=== PATIENT | female | born 1985 | race Caucasian/White ===

== ENCOUNTER → 2019-05-15 | Outpatient (CLI) | payer OTHER ==
[~2019-05-15] MED LIST: BUSP5TA PO; CELE40TA PO; LISI10TA4 PO; METF500T13 PO
--- NOTE | 2019-05-17 10:02 | REP ---
REASON: Pain and degenerative disc disease. COMPARISON: None. The craniovertebral junction is within normal limits. The signal throughout the imaged spinal cord is within normal limits. The facet joints are well aligned bilaterally. There is a slight cervical kyphotic curve. Vertebral body height is within normal limits throughout. There is disc space narrowing C3-4 through C5-6 inclusive. At the C2-3 level, there is a slight broad-based annular bulge. This causes a mild concave anterior deformity of the ventral subarachnoid space. There is no disc herniation, foraminal narrowing or alexis central canal stenosis. At the C3-4 level, there is a mild to moderate broad-based annular bulge. This causes a mild compression of the ventral subarachnoid space without cord compression, disc extrusion, or foraminal narrowing. At the C4-5 level, there is a moderate broad-based annular bulge, which restricts the ventral subarachnoid space and causes a flattening and straightening of the anterior surface of the spinal cord. There is no disc extrusion or foraminal narrowing. There is mild central canal stenosis. At the C5-6 level, there is a broad-based annular bulge with a central disc extrusion. There is a concave anterior deformity of the spinal cord at this level with obliteration of the ventral subarachnoid space. The extruded disc material migrates inferiorly. There is no foraminal narrowing. At the C6-7 level, there is a broad-based annular bulge seen in conjunction with a central focal subligamentous disc protrusion. The bulging annulus nearly obliterates the ventral subarachnoid space and causes a flattening and straightening of the anterior surface of the spine cord. There is no foraminal narrowing. At the C6-T1 level, there is no abnormality noted. There is no disc herniation, foraminal narrowing or central canal stenosis. IMPRESSION: Discogenic change is seen from C3-4 to C6-7 as described above with a C5-6 disc extrusion and a C6-7 disc protrusion with resultant findings as described above. Electronically Signed by Haris Moreno DO 05/17/2019 03:27 P
--- NOTE | 2019-05-17 10:05 | REP ---
REASON: Back pain. History of degenerative disc disease. COMPARISON: None. Vertebral body height and alignment is within normal limits. There is loss of disc hydrational signal, which is mild and at every level particularly anteriorly. There is no abnormal signal seen in the imaged portion of the spinal cord. The marrow signal is within normal limits. Small Schmorl's nodes are seen at the T10-11 and T11-12 levels. At the T9-10 level, there is a broad-based annular bulge seen in conjunction with a central disc extrusion. The extruded disc material migrates inferiorly and contacts, but does not deform the anterior surface of the spinal cord. The remainder of all imaged thoracic spine levels are without disc extrusion, foraminal narrowing or central canal stenosis. IMPRESSION: T9-10 discogenic change as described above. Electronically Signed by Haris Moreno DO 05/17/2019 03:27 P
--- NOTE | 2019-05-17 10:31 | REP ---
REASON: Back pain. PRIORS: None. There is mild to moderate loss of disc hydrational signal and posterior disc space height at L5-S1. The remainder of the disc spaces are well hydrated and of normal appearing height. The marrow signal is within normal limits throughout. There is no abnormal signal seen in the imaged portion of the spinal cord. From the L1-2 level through the L4-5 level and inclusive, there is no disc herniation, foraminal narrowing or central canal stenosis. No significant degenerative facet joint change is seen at those levels. At the L5-S1 level, there is an asymmetric broad-based annular bulge with a prominent left paracentral component which contacts the left L5 nerve and very closely approximates the left S2 nerve. There is no disc extrusion at this level. The facet joints are within normal limits showing minimal hypertrophic change. IMPRESSION: Discogenic change is seen at L5-S1 as described above. Electronically Signed by Haris Moreno DO 05/17/2019 03:27 P
== END ==
LOC: M RAD 10:28
PROVIDERS: ATTEND Nurse Practitioner Adult Health
DX: M50.122 Cervical disc disorder at C5-C6 level with radiculopathy (principal); M51.34 Other intervertebral disc degeneration, thoracic region; M51.36 Other intervertebral disc degeneration, lumbar region

== ENCOUNTER → 2020-01-12 | Outpatient (REF) | payer OTHER | LOC: M SFHCLERA 10:29 | PROVIDERS: ATTEND Nurse Practitioner Family | DX: R53.81 Other malaise (principal) ==

== ENCOUNTER → 2021-12-13 | Outpatient (CLI) | payer OTHER ==
[~2021-12-13] MED LIST changes: +LISI10TA22 PO; -LISI10TA4 PO
== END ==
LOC: M PLAIMG 15:14
PROVIDERS: ATTEND Internal Medicine
DX: R51.9 Headache, unspecified (principal); S83.92XD Sprain of unspecified site of left knee, subsequent encounter